=== PATIENT | female | born 1965 | race Caucasian/White ===

== ENCOUNTER 2016-09-27 14:10 | Emergency (ER) | payer OTHER ==
[2016-09-27 14:20] VITALS: BP 136/85
[2016-09-27] MEDS ORDERED: Ibuprofen TAB* 600 MG PO ONE (16:44)
--- NOTE | 2016-09-27 18:10 | UC ---
Manuel Hernandez Alfonso, scribed for Bird Rivas MD on 09/27/16 at 1601 . HPI Febrile Illness - HPI Summary HPI Summary: This patient is a 51 year old F presenting to [facility] with a chief complaint of febrile illness since 2 days ago. The CC is described as a burning ache. Pt rates the pain 4/10 in severity. Symptoms aggravated by cough and alleviated by nothing. Pt reports chills, nausea, aches (worse on left side), rhinorrhea, sore throat, left ear ache, tiredness, headache, lightheadedness, and dizziness. Pt denies dysuria, urinary symptoms, vaginal discharge, chest congestion, and abdominal pain. Pt reports I was bite by a really tiny tick in my left arm last week. PMHx of asthma and seasonal allergies. Patient medications reviewed this visit. - History of Current Complaint Chief Complaint: UCDizziness Time Seen by Provider: 09/27/16 15:46 Hx Obtained From: Patient Onset/Duration: Started Days Ago - 2, Still Present Timing: Constant Temperature: 101.4 F Initial Severity: Moderate Current Severity: Moderate Pain Intensity: 4 Pain Scale Used: 0-10 Numeric Aggravating Factors: Other: - Coughing Alleviating Factors: Nothing Associated Signs and Symptoms: Other: Related History: Recent Tick Bite - I was bite by a really tiny tick in my left arm last week. - Allergy/Home Medications Allergies/Adverse Reactions: Allergies Allergy/AdvReac Type Severity Reaction Status Date / Time No Known Allergies Allergy Verified 09/27/16 14:20 Home Medications: Home Medications Albuterol HFA INHALER* [Ventolin HFA Inhaler*] 1 puff INH Q4H PRN 09/27/16 [ History Confirmed 09/27/16] Atorvastatin* [Lipitor*] 10 mg PO 1700 09/27/16 [History Confirmed 09/27/16] Azelastine 0.05% (OPHTH)(NF) [Optivar 0.05% (NF)] 1 drop BOTH EYES 09/27/16 [ History] Desloratadine [Clarinex] 0.5 mg PO 09/27/16 [History] Escitalopram Oxalate [Lexapro 10 mg] 5 mg PO DAILY 09/27/16 [History Confirmed 09/27/16] Ibuprofen [Advil] 400 mg PO 09/27/16 [History] Mometasone NASAL (NF) [Nasonex (NF)] 50 mcg NA 09/27/16 [History] PMH/Surg Hx/FS Hx/Imm Hx Respiratory History: Reports: Hx Asthma Opthamlomology History: Denies: Hx Legally Blind EENT History: Denies: Hx Deafness - Cancer History Hx Chemotherapy: No Hx Radiation Therapy: No - Surgical History Surgery Procedure, Year, and Place: d&c polups, wisdom teeth extraction Infectious Disease History: No Infectious Disease History: Denies: Traveled Outside the [place] in Last 30 Days - Family History Known Family History: Positive: Renal Disease - Social History Alcohol Use: Rare Substance Use Type: Reports: None Smoking Status (MU): Never Smoked Tobacco Review of Systems Constitutional: Fever, Chills ENT: Sore Throat, Ear Ache - Left, Other - Positive rhinorrhea, Cardiovascular: Other - Negative chest congestion Gastrointestinal: Nausea, Other - Negative abd pain Genitourinary: Other - Negative dysuria, urinary symptoms, and vaginal discharge. Neurological: Other - Positive tieredness, headache, lightheadedness, and dizziness; All Other Systems Reviewed And Are Negative: Yes Physical Exam Triage Information Reviewed: Yes Appearance: Well-Appearing, No Pain Distress Vital Signs: Initial Vital Signs Temp 101.4 F 09/27/16 14:12 Pulse 99 09/27/16 14:12 Resp 18 09/27/16 14:12 BP 136/85 09/27/16 14:12 Pulse Ox 99 09/27/16 14:12 Vital Signs Reviewed: Yes Eyes: Positive: Other: - EOMI LIZZETTE ENT: Positive: Other: - Rhinorrhea clear. Posterior pharynx benign. Neck: Positive: Supple, Nontender Respiratory: Positive: Chest non-tender, Lungs clear, Normal breath sounds Cardiovascular: Positive: RRR Abdomen Description: Positive: Nontender, Soft Bowel Sounds: Positive: Present Musculoskeletal: Positive: Strength Intact Neurological: Positive: Alert Psychological: Positive: Age Appropriate Behavior Skin Exam: Normal Re-Evaluation - Re-Evaluation First Eval Re-Evaluation Time: 16:40 Comment: Reviewed labs and results with pt. She understands and agrees with discharge plan. Course/Dx - Course Course Of Treatment: NO OBVIOUS SOURCE FOR FEVER EXCEPT TICK BITE. WILL TREAT WITH DOXY. PATIENT WILL F/U WITH PMD; WILL RETURN IF WORSE OR NOT IMPROVING. - Diagnoses Clinic Provider Diagnoses: FEVER WITH HX OF TICK BITE Discharge - Discharge Plan Condition: Stable Disposition: HOME Prescriptions: DOXYcycline CAP(*) [DOXYcycline 100MG CAP(*)] 100 mg PO BID #42 cap Patient Education Materials: Tick Bite (ED), Fever in Adults (ED) Referrals: Jose Armando Anand MD [Primary Care Provider] - Additional Instructions: FOLLOW UP WITH YOUR DOCTOR. GO TO THE EMERGENCY DEPARTMENT FOR ANY WORSENING OF YOUR CONDITION OR QUESTIONS OR CONCERNS. The documentation as recorded by the Manuel galvez Alfonso accurately reflects the service I personally performed and the decisions made by me, Bird Rivas MD.
== END 2016-09-27 16:54 | disposition home or self-care (01) ==
LOC: UCEAST 14:10
DX: R50.9 Fever, unspecified (principal); S40.862A Insect bite (nonvenomous) of left upper arm, initial encounter
CPT/HCPCS: 81003; 84702; 93005; 99202; A9270-GY; G0463

== ENCOUNTER 2019-04-27 17:17 | Emergency (ER) | payer OTHER ==
--- OUTSIDE RECORDS SUMMARY | 2019-04-27 17:24 | XMS REPORT | Continuity of Care Document ---
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 Onset: 01/21/2015 Body mass index 30+ - obesity Luis Alberto Truong M.D. Onset: 01/21/2015 Uncomplicated moderate persistent asthma Luis Alberto Truong M.D. Onset: 01/21/2015 Allergic rhinitis due to pollen RENATO Oh Onset: 04/17/2015 Allergic rhinitis due to animals RENATO Oh Onset: 04/17/2015 Allergic rhinitis RENATO Oh Onset: 04/17/2015 Allergic rhinitis RENATO Oh Onset: 04/17/2015 Body mass index 30+ - obesity Shanell Pruett M.D. Onset: 05/08/2016 Uncomplicated moderate persistent asthma RENATO Mustafa Onset: 2016 Social History Type Date Description Comments Sex Unknown ETOH Use Rarely consumes alcohol Tobacco Use Start: Unknown Patient has never smoked Recreational Drug Use Never Used Drugs Allergies, Adverse Reactions, Alerts Description No Known Drug Allergies Medications Active Medications SIG Qnty Indications Ordering Date Provider Desloratadine take 1 tablet by 60tabs Umu 5mg Tablets mouth twice daily Art Wray Mometasone Furoate Use 2 Sprays In 51gm Umu 50mcg/Act Each Nostril Once Uldrich, 9 Suspension Daily [employer] Proair Respiclick 2 puffs every 4 1units Umu 108(90Base) hours as needed Uldrich, 8 mcg/Act Aerosol for cough, wheeze [employer] or shortness of breath Ventolin HFA 2 every 4 hours 18gm Umu 108(90Base) as needed Uldrich, 8 mcg/Act Aerosol [employer] Optichamber Advantage use with all 2units Umu Misc inhalers Uldrich, 7 [employer] Azelastine HCL 1 drop to each 18ml Umu (Ophthalmic) eye daily. Uldrich, 6 0.05% Solution [employer] Symbicort inhale 1 puff by 10.200gm J30.1 Umu 160-4.5mcg/Act mouth every Uldrich, 4 Aerosol morning and night [employer] Lipitor 1 tablet once a Unknown 10mg Tablets day 0 Lexapro 1 tablet once a Unknown 10mg Tablets day 0 Medroxyprogesterone first ten days of Lin Barton Acetate month Fariha 0 10mg Tablets Proair HFA two inhalations 17gm Umu 108(90Base) mcg/Act every 4 hours as Uldrich, 0 Aerosol needed for cough, [employer] wheezing or chest tightness Nasonex Use Two Sprays In 17units Umu 50mcg/Act Suspension Each Nostril Once Uldrich, 0 Daily [employer] Medications Administered in Office Medication SIG Qnty Indications Ordering Provider Date Injection Allergy Injection 03/10/2019 Injection Injection Allergy Injection 02/24/2019 Injection Injection Allergy Injection 01/25/2019 Injection Injection Allergy Injection 01/09/2019 Injection Injection Allergy Injection 12/26/2018 Injection Injection Allergy Injection 12/12/2018 Injection Injection Allergy Injection 11/23/2018 Injection Injection Allergy Injection 11/09/2018 Injection Injection Allergy Injection 10/14/2018 Injection Injection Allergy Injection 09/30/2018 Injection Injection Allergy Injection 09/14/2018 Injection Injection Allergy Injection 08/29/2018 Injection Injection Allergy Injection 08/12/2018 Injection Injection Allergy Injection 07/22/2018 Injection Injection Allergy Injection 07/08/2018 Injection Injection Allergy Injection 06/24/2018 Injection Injection Allergy Injection 06/10/2018 Injection Injection Allergy Injection 2018 Injection Injection Allergy Injection 05/13/2018 Injection Injection Allergy Injection 04/29/2018 Injection Injection Allergy Injection 04/15/2018 Injection Injection Allergy Injection 04/01/2018 Injection Injection Allergy Injection 03/02/2018 Injection Injection Allergy Injection 02/02/2018 Injection Injection Allergy Injection 01/19/2018 Injection Injection Allergy Injection 01/05/2018 Injection Injection Allergy Injection 12/15/2017 Injection Injection Shanell Pruett M.D. 11/24/2017 Injection Injection Allergy Injection 11/24/2017 Injection Injection Allergy Injection 11/10/2017 Injection Injection Allergy Injection 10/25/2017 Injection Injection Allergy Injection 10/11/2017 Injection Injection Allergy Injection 09/24/2017 Injection Injection Allergy Injection 09/10/2017 Injection Injection Allergy Injection 09/03/2017 Injection Injection Allergy Injection 08/20/2017 Injection Injection Allergy Injection 08/05/2017 Injection Injection Allergy Injection 07/22/2017 Injection Injection Allergy Injection 07/08/2017 Injection Injection Allergy Injection 06/24/2017 Injection Injection Allergy Injection 05/27/2017 Injection Injection Allergy Injection 04/30/2017 Injection Injection Allergy Injection 04/01/2017 Injection Injection Allergy Injection 03/03/2017 Injection Injection Allergy Injection 02/03/2017 Injection Injection Allergy Injection 01/21/2017 Injection Injection Allergy Injection 01/08/2017 Injection Injection Allergy Injection 12/25/2016 Injection Injection Allergy Injection 12/11/2016 Injection Injection Shanell Pruett M.D. 11/27/2016 Injection Injection Allergy Injection 11/27/2016 Injection Injection Shanell Pruett M.D. 11/06/2016 Injection Injection Allergy Injection 11/06/2016 Injection Injection Allergy Injection 10/22/2016 Injection Injection Allergy Injection 10/08/2016 Injection Injection Shanell Pruett M.D. 09/17/2016 Injection Injection Allergy Injection 09/17/2016 Injection Injection Shanell Pruett M.D. 09/03/2016 Injection Injection Allergy Injection 09/03/2016 Injection Injection Allergy Injection 08/20/2016 Injection Injection Allergy Injection 08/06/2016 Injection Injection Allergy Injection 07/22/2016 Injection Injection Allergy Injection 07/06/2016 Injection Injection Allergy Injection 06/17/2016 Injection Injection Allergy Injection 06/03/2016 Injection Injection Allergy Injection 05/21/2016 Injection Injection Shanell Pruett M.D. 04/22/2016 Injection Injection Allergy Injection 04/22/2016 Injection Injection Allergy Injection 04/08/2016 Injection Injection Allergy Injection 03/25/2016 Injection Injection Allergy Injection 03/04/2016 Injection Injection Allergy Injection 02/19/2016 Injection Injection Allergy Injection 02/05/2016 Injection Injection Allergy Injection 01/16/2016 Injection Injection Allergy Injection 12/26/2015 Injection Injection Allergy Injection 12/11/2015 Injection Injection Allergy Injection 11/27/2015 Injection Injection Allergy Injection 11/13/2015 Injection Injection Allergy Injection 10/30/2015 Injection Injection Allergy Injection 10/16/2015 Injection Injection Allergy Injection 10/02/2015 Injection Injection Allergy Injection 09/18/2015 Injection Injection Allergy Injection 09/04/2015 Injection Injection Allergy Injection 08/21/2015 Injection Injection Allergy Injection 08/07/2015 Injection Injection Allergy Injection 07/24/2015 Injection Injection Allergy Injection 07/10/2015 Injection Injection Allergy Injection 06/27/2015 Injection Injection Allergy Injection 06/12/2015 Injection Injection Allergy Injection 05/29/2015 Injection Injection Allergy Injection 05/15/2015 Injection Injection Allergy Injection 05/01/2015 Injection Injection Allergy Injection 04/17/2015 Injection Injection Allergy Injection 03/20/2015 Injection Injection Allergy Injection 02/18/2015 Injection Injection Allergy Injection 01/21/2015 Injection Injection Allergy Injection 01/04/2015 Injection Injection Allergy Injection 12/21/2014 Injection Injection Allergy Injection 12/07/2014 Injection Injection Allergy Injection 11/15/2014 Injection Injection Allergy Injection 11/05/2014 Injection Injection Allergy Injection 10/22/2014 Injection Injection Allergy Injection 10/10/2014 Injection Injection Allergy Injection 09/26/2014 Injection Injection Allergy Injection 09/12/2014 Injection Injection Allergy Injection 08/29/2014 Injection Injection Allergy Injection 08/15/2014 Injection Injection Allergy Injection 08/01/2014 Injection Injection Allergy Injection 07/18/2014 Injection Injection Allergy Injection 07/04/2014 Injection Injection Allergy Injection 06/20/2014 Injection Injection Allergy Injection 05/23/2014 Injection Injection Allergy Injection 04/23/2014 Injection Injection Allergy Injection 03/26/2014 Injection Injection Allergy Injection 02/26/2014 Injection Injection Allergy Injection 01/31/2014 Injection Injection Allergy Injection 01/03/2014 Injection Injection Allergy Injection 12/20/2013 Injection Injection Allergy Injection 12/06/2013 Injection Injection Allergy Injection 11/22/2013 Injection Injection Allergy Injection 11/08/2013 Injection Injection Allergy Injection 10/25/2013 Injection Injection Allergy Injection 10/11/2013 Injection Injection Allergy Injection 09/27/2013 Injection Injection Allergy Injection 09/13/2013 Injection Injection Allergy Injection 08/30/2013 Injection Injection Allergy Injection 08/16/2013 Injection Injection Allergy Injection 08/02/2013 Injection Injection Allergy Injection 07/24/2013 Injection Injection Allergy Injection 07/10/2013 Injection Injection Allergy Injection 06/28/2013 Injection Injection Allergy Injection 06/14/2013 Injection Injection Allergy Injection 05/31/2013 Injection Injection Allergy Injection 05/17/2013 Injection Injection Allergy Injection 05/03/2013 Injection Injection Allergy Injection 04/19/2013 Injection Injection Allergy Injection 04/05/2013 Injection Injection Allergy Injection 03/22/2013 Injection Injection Allergy Injection 03/13/2013 Injection Injection Allergy Injection 03/06/2013 Injection Injection Allergy Injection 02/22/2013 Injection Injection Allergy Injection 02/08/2013 Injection Injection Allergy Injection 01/25/2013 Injection Injection Allergy Injection 01/11/2013 Injection Injection Allergy Injection 12/28/2012 Injection Injection Allergy Injection 12/14/2012 Injection Injection Allergy Injection 11/30/2012 Injection Injection Allergy Injection 11/16/2012 Injection Injection Allergy Injection 11/02/2012 Injection Injection Allergy Injection 10/19/2012 Injection Injection Allergy Injection 10/05/2012 Injection Injection Allergy Injection 09/21/2012 Injection Injection Allergy Injection 09/07/2012 Injection Injection Allergy Injection 08/24/2012 Injection Injection Allergy Injection 08/10/2012 Injection Injection Allergy Injection 07/25/2012 Injection Injection Allergy Injection 07/11/2012 Injection Injection Allergy Injection 06/27/2012 Injection Injection Allergy Injection 06/08/2012 Injection Injection Amaya Weiner M.D. 05/11/2012 Injection Injection Amaya Weiner M.D. 04/13/2012 Injection Injection Amaya Weiner M.D. 03/18/2012 Injection Injection Amaya Weiner M.D. 03/02/2012 Injection Injection Amaya Weiner M.D. 02/17/2012 Injection Injection Amaya Weiner M.D. 02/01/2012 Injection Injection Amaya Weiner M.D. 01/11/2012 Injection Injection Amaya M Husam, Ulices.DRene 12/30/2011 Injection Injection Amaya M Husam, Ulices.DRene 12/16/2011 Injection Injection Amaya M Husam, Ulices.DRene 12/02/2011 Injection Injection Amaya Elena Husam, M.DRene 11/20/2011 Injection Injection Amaya M Husam, M.DRene 11/04/2011 Injection Injection Amaya M Husam, TamarDRene 10/21/2011 Injection Injection Amaya M Husam, M.DRene 10/07/2011 Injection Injection Amaya Elena Husam, M.DRene 09/21/2011 Injection Injection Amaya M Husam, Ulices.DRene 09/09/2011 Injection Injection Maaya M Husam, TamarDRene 08/26/2011 Injection Injection Luiz Gastelum, TamarDRene 08/12/2011 Injection Injection Amaya M Husam, TamarDRene 07/29/2011 Injection Injection Amaya Ulices Husam, TamarDRene 07/15/2011 Injection Injection Amaya M Husam, Ulices.DRene 07/01/2011 Injection Injection Amaya Elena Husam, Ulices.DRene 06/17/2011 Injection Injection Amaya Elena Husam, Ulices.DRene 06/03/2011 Injection Injection Amaya M Husam, Ulices.DRene 05/06/2011 Injection Injection Amaya Elena Husam, M.DRene 04/08/2011 Injection Injection Amaya Elena Husam, Ulices.DRene 03/11/2011 Injection Injection Amaya Ulices Husam, Ulices.DRene 02/11/2011 Injection Injection Amaya Ulices Husam, Ulices.DRene 01/28/2011 Injection Injection Amaya M Husam, M.DRene 01/14/2011 Injection Injection Amaya M Husam, M.DRene 12/31/2010 Injection Injection Amaya Ulices Husam, M.DRene 12/19/2010 Injection Injection Amaya M Husam, M.DRene 12/03/2010 Injection Injection Amaya M Husam, M.DRene 11/19/2010 Injection Injection Amaya M Husam, M.DRene 11/05/2010 Injection Injection Amaya Weiner, Ulices.DRene 10/22/2010 Injection Injection Amaya Ulices Husam, M.DRene 10/08/2010 Injection Injection Amaya Weiner M.D. 09/22/2010 Injection Injection Amaya Weiner M.D. 09/10/2010 Injection Injection Amaya Weiner M.D. 08/27/2010 Injection Injection Amaya Weiner M.D. 08/13/2010 Injection Injection Amaya Weiner M.D. 07/28/2010 Injection Injection Amaya Weiner M.D. 07/14/2010 Injection Injection Amaya Weiner M.D. 07/02/2010 Injection Injection Tamar LazcanoDRene 06/16/2010 Injection Injection Tamar LazcanoDRene 06/04/2010 Injection Injection Amaya Weiner M.D. 05/21/2010 Injection Injection Amaya Weiner M.D. 05/07/2010 Injection Injection Amaya Weiner M.D. 04/23/2010 Injection Injection Amaya Weiner M.D. 04/07/2010 Injection Injection Amaya Weiner M.D. 03/26/2010 Injection Injection Amaya Weiner M.D. 03/12/2010 Injection Injection Lisa Dewitt MD 03/03/2010 Injection Injection Amaya Weiner M.D. 02/19/2010 Injection Injection Amaya Weiner M.D. 02/10/2010 Injection Injection Amaya Weiner M.D. 02/05/2010 Injection Injection Amaya Weiner M.D. 01/29/2010 Injection Injection Amaya Weiner M.D. 01/22/2010 Injection Injection Amaya Weiner M.D. 01/15/2010 Injection Injection Amaya Weiner M.D. 01/08/2010 Injection Injection Amaya Weiner M.D. 01/01/2010 Injection Injection Amaya Weiner M.D. 12/25/2009 Injection Injection Amaya Weiner M.D. 12/18/2009 Injection Injection Amaya Weiner M.D. 12/11/2009 Injection Injection Amaya Weiner M.D. 12/04/2009 Injection Injection Amaya Weiner M.D. 11/27/2009 Injection Injection Amaya Weiner M.D. 11/20/2009 Injection Injection Amaya Weiner M.D. 11/13/2009 Injection Injection Amaya Weiner M.D. 11/06/2009 Injection Injection Amaya Weiner M.D. 10/30/2009 Injection Injection Amaya Weiner M.D. 10/23/2009 Injection Injection Amaya Weiner M.D. 10/16/2009 Injection Injection Amaya Weiner M.D. 10/07/2009 Injection Injection Amaya Weiner M.D. 10/02/2009 Injection Injection Amaya Weiner M.D. 09/23/2009 Injection Injection Amaya Weiner M.D. 09/18/2009 Injection Injection Amaya Weiner M.D. 09/11/2009 Injection Injection Amaya Weiner M.D. 09/06/2009 Injection Injection Amaya Weiner M.D. 08/28/2009 Injection Injection Amaya Weiner M.D. 08/21/2009 Injection Injection Amaya Weiner M.D. 08/14/2009 Injection Immunizations CPT Code Status Date Vaccine Lot # 70326 Given Unknown Influenza Vaccine 82223 Given Unknown Influenza Vaccine 28055 Given Unknown Influenza Vaccine 63039 Given Unknown Influenza Vaccine Vital Signs Date Vital Result Comment 03/10/2019 1:37pm Height 65.5 inches 5'5.50" Weight 198.00 lb Weight 89.813 kg Respiratory Rate 16 /min Heart Rate 88 /min O2 % BldC Oximetry 97 % BP Systolic 115 mmHg BP Diastolic 81 mmHg Asthma Control Test 24 BMI (Body Mass Index) 32.4 kg/m2 08/29/2018 11:38am Height 65.5 inches 5'5.50" Weight 195.00 lb Weight 88.452 kg Respiratory Rate 18 /min Heart Rate 90 /min O2 % BldC Oximetry 96 % BP Systolic 122 mmHg BP Diastolic 82 mmHg Asthma Control Test 24 Fractional Exhaled Nitric Oxide 23 BMI (Body Mass Index) 32.0 kg/m2 Results Description No Information Available Procedures Date Code Description Status 03/10/2019 71205 Injection Completed 02/24/2019 23155 Injection Completed 01/25/2019 89564 Extract 1-10 Completed 01/25/2019 38747 Injection Completed 01/09/2019 39451 Injection Completed 12/26/2018 70768 Injection Completed 12/12/2018 44489 Injection Completed 11/23/2018 48144 Injection Completed 11/09/2018 79411 Injection Completed 10/14/2018 89198 Injection Completed 09/30/2018 02070 Injection Completed 09/14/2018 71605 Injection Completed Medical Devices Description No Information Available Encounters Type Date Location Provider Dx Diagnosis Office Visit 03/10/2019 Brandon Wray, J30.1 Allergic rhinitis due 1:40p [employer] to pollen J30.2 Other seasonal allergic rhinitis J30.81 Allergic rhinitis due to animal (cat) (dog) hair and dander J30.89 Other allergic rhinitis J45.40 Moderate persistent asthma, uncomplicated Assessments Date Code Description Provider 03/10/2019 J30.1 Allergic rhinitis due to pollen Shanell Pruett M.D. 03/10/2019 J30.1 Allergic rhinitis due to pollen Umutrevin Wray, [employer] 03/10/2019 J30.1 Allergic rhinitis due to pollen Allergy Injection 03/10/2019 J30.2 Other seasonal allergic rhinitis Shanell Pruett M.D. 03/10/2019 J30.2 Other seasonal allergic rhinitis Umu Kamala, [employer] 03/10/2019 J30.2 Other seasonal allergic rhinitis Allergy Injection 03/10/2019 J30.81 Allergic rhinitis due to animal (cat) (dog) Shanell Pruett M.D. hair and dander 03/10/2019 J30.81 Allergic rhinitis due to animal (cat) (dog) Umu Yudydrich, [employer] hair and dander 03/10/2019 J30.81 Allergic rhinitis due to animal (cat) (dog) Allergy Injection hair and dander 03/10/2019 J30.89 Other allergic rhinitis Shanell Pruett M.D. 03/10/2019 J30.89 Other allergic rhinitis Umu Uldrich, [employer] 03/10/2019 J30.89 Other allergic rhinitis Allergy Injection 03/10/2019 J45.40 Moderate persistent asthma, uncomplicated Umu Uldrich , [employer] 02/24/2019 J30.1 Allergic rhinitis due to pollen Shanell Pruett M.D. 02/24/2019 J30.1 Allergic rhinitis due to pollen Allergy Injection 02/24/2019 J30.2 Other seasonal allergic rhinitis Shanell Pruett M.D. 02/24/2019 J30.2 Other seasonal allergic rhinitis Allergy Injection 02/24/2019 J30.81 Allergic rhinitis due to animal (cat) (dog) Shanell Pruett M.D. hair and dander 02/24/2019 J30.81 Allergic rhinitis due to animal (cat) (dog) Allergy Injection hair and dander 02/24/2019 J30.89 Other allergic rhinitis Shanell Pruett M.D. 02/24/2019 J30.89 Other allergic rhinitis Allergy Injection 01/25/2019 J30.1 Allergic rhinitis due to pollen Shanell Pruett M.D. 01/25/2019 J30.1 Allergic rhinitis due to pollen Allergy Injection 01/25/2019 J30.2 Other seasonal allergic rhinitis Shanell Pruett M.D. 01/25/2019 J30.2 Other seasonal allergic rhinitis Allergy Injection 01/25/2019 J30.81 Allergic rhinitis due to animal (cat) (dog) Shanell Pruett M.D. hair and dander 01/25/2019 J30.81 Allergic rhinitis due to animal (cat) (dog) Allergy Injection hair and dander 01/25/2019 J30.89 Other allergic rhinitis Shanell Pruett M.D. 01/25/2019 J30.89 Other allergic rhinitis Allergy Injection 01/09/2019 J30.1 Allergic rhinitis due to pollen Shanell Pruett M.D. 01/09/2019 J30.1 Allergic rhinitis due to pollen Allergy Injection 01/09/2019 J30.2 Other seasonal allergic rhinitis Shanell Pruett M.D. 01/09/2019 J30.2 Other seasonal allergic rhinitis Allergy Injection 01/09/2019 J30.81 Allergic rhinitis due to animal (cat) (dog) Shanell Pruett M.D. hair and dander 01/09/2019 J30.81 Allergic rhinitis due to animal (cat) (dog) Allergy Injection hair and dander 01/09/2019 J30.89 Other allergic rhinitis Shanell Pruett M.D. 01/09/2019 J30.89 Other allergic rhinitis Allergy Injection 12/26/2018 J30.1 Allergic rhinitis due to pollen Shanell Pruett M.D. 12/26/2018 J30.1 Allergic rhinitis due to pollen Allergy Injection 12/26/2018 J30.2 Other seasonal allergic rhinitis Shanell Pruett M.D. 12/26/2018 J30.2 Other seasonal allergic rhinitis Allergy Injection 12/26/2018 J30.81 Allergic rhinitis due to animal (cat) (dog) Shanell Pruett M.D. hair and dander 12/26/2018 J30.81 Allergic rhinitis due to animal (cat) (dog) Allergy Injection hair and dander 12/26/2018 J30.89 Other allergic rhinitis Shanell Pruett M.D. 12/26/2018 J30.89 Other allergic rhinitis Allergy Injection 12/12/2018 J30.1 Allergic rhinitis due to pollen Shanell Pruett M.D. 12/12/2018 J30.1 Allergic rhinitis due to pollen Allergy Injection 12/12/2018 J30.2 Other seasonal allergic rhinitis Shanell Pruett M.D. 12/12/2018 J30.2 Other seasonal allergic rhinitis Allergy Injection 12/12/2018 J30.81 Allergic rhinitis due to animal (cat) (dog) Shanell Pruett M.D. hair and dander 12/12/2018 J30.81 Allergic rhinitis due to animal (cat) (dog) Allergy Injection hair and dander 12/12/2018 J30.89 Other allergic rhinitis Shanell Pruett M.D. 12/12/2018 J30.89 Other allergic rhinitis Allergy Injection 11/23/2018 J30.1 Allergic rhinitis due to pollen Shanell Pruett M.D. 11/23/2018 J30.1 Allergic rhinitis due to pollen Allergy Injection 11/23/2018 J30.2 Other seasonal allergic rhinitis Shanell Pruett M.D. 11/23/2018 J30.2 Other seasonal allergic rhinitis Allergy Injection 11/23/2018 J30.81 Allergic rhinitis due to animal (cat) (dog) Shanell Pruett M.D. hair and dander 11/23/2018 J30.81 Allergic rhinitis due to animal (cat) (dog) Allergy Injection hair and dander 11/23/2018 J30.89 Other allergic rhinitis Shanell Pruett M.D. 11/23/2018 J30.89 Other allergic rhinitis Allergy Injection 11/09/2018 J30.1 Allergic rhinitis due to pollen Shanell Pruett M.D. 11/09/2018 J30.1 Allergic rhinitis due to pollen Allergy Injection 11/09/2018 J30.2 Other seasonal allergic rhinitis Shanell Pruett M.D. 11/09/2018 J30.2 Other seasonal allergic rhinitis Allergy Injection 11/09/2018 J30.81 Allergic rhinitis due to animal (cat) (dog) Shanell Pruett M.D. hair and dander 11/09/2018 J30.81 Allergic rhinitis due to animal (cat) (dog) Allergy Injection hair and dander 11/09/2018 J30.89 Other allergic rhinitis Shanell Pruett M.D. 11/09/2018 J30.89 Other allergic rhinitis Allergy Injection 10/14/2018 J30.1 Allergic rhinitis due to pollen Shanell Pruett M.D. 10/14/2018 J30.1 Allergic rhinitis due to pollen Allergy Injection 10/14/2018 J30.2 Other seasonal allergic rhinitis Shanell Pruett M.D. 10/14/2018 J30.2 Other seasonal allergic rhinitis Allergy Injection 10/14/2018 J30.81 Allergic rhinitis due to animal (cat) (dog) Shanell Pruett M.D. hair and dander 10/14/2018 J30.81 Allergic rhinitis due to animal (cat) (dog) Allergy Injection hair and dander 10/14/2018 J30.89 Other allergic rhinitis hSanell Pruett M.D. 10/14/2018 J30.89 Other allergic rhinitis Allergy Injection 09/30/2018 J30.1 Allergic rhinitis due to pollen Shanell Pruett M.D. 09/30/2018 J30.1 Allergic rhinitis due to pollen Allergy Injection 09/30/2018 J30.2 Other seasonal allergic rhinitis Shanell Pruett M.D. 09/30/2018 J30.2 Other seasonal allergic rhinitis Allergy Injection 09/30/2018 J30.81 Allergic rhinitis due to animal (cat) (dog) Shanell Pruett M.D. hair and dander 09/30/2018 J30.81 Allergic rhinitis due to animal (cat) (dog) Allergy Injection hair and dander 09/30/2018 J30.89 Other allergic rhinitis Shanell Pruett M.D. 09/30/2018 J30.89 Other allergic rhinitis Allergy Injection 09/14/2018 J30.1 Allergic rhinitis due to pollen Shanell Pruett M.D. 09/14/2018 J30.1 Allergic rhinitis due to pollen Allergy Injection 09/14/2018 J30.2 Other seasonal allergic rhinitis Shanell Pruett M.D. 09/14/2018 J30.2 Other seasonal allergic rhinitis Allergy Injection 09/14/2018 J30.81 Allergic rhinitis due to animal (cat) (dog) Shanell Pruett M.D. hair and dander 09/14/2018 J30.81 Allergic rhinitis due to animal (cat) (dog) Allergy Injection hair and dander 09/14/2018 J30.89 Other allergic rhinitis Shanell Pruett M.D. 09/14/2018 J30.89 Other allergic rhinitis Allergy Injection Plan of Treatment 03/10/2019 - EDUARD Mustafa-CJ30.1 Allergic rhinitis due to qihyddK86.2 Other seasonal allergic vywhxjtuP14.81 Allergic rhinitis due to animal (cat) ( dog) hair and ushhpbO78.89 Other allergic kzmciayyJ64.40 Moderate persistent asthma, uncomplicatedRecommendations:Continue all medications as prescribed.Refrain from wearing perfumes/scented colognes while visitingour office. Continue the Symbicort 2 puffs twice a day Continue the Clarinex 1 daily Continue the Nasonex 2 squirts daily Continue the Azelestine eye drops Continue the Proair 2 puffs every 4 hoursas needed for cough, exercise, shortness of breath, wheezing or chest tightness.Monitor Albuterol use. If using more than 2x/week, please call the office as your asthma medications may need to be adjusted. PFT done today. Pulmonary Function Studies are done by exhaling (blowing) into a machine to detect an asthmatic condition or other lung problem. Results reviewed with the patient and shows mild restriction. Continue the allergy shots next week Functional Status Description No Information Available Mental Status Description No Information Available Referrals Description No Information Available
[2019-04-27 17:44] VITALS: BP 123/79
--- NOTE | 2019-04-27 18:19 | UC ---
FLU HPI - HPI Summary HPI Summary: 53 yo female presents with flu-like symptoms. She tells me that for the last 3- 4 days she has been having body aches, fatigue, runny nose, and a dry cough. She has not been taking any OTC medications. She denies fever, sore throat, SOB , chest pain, rash, abdominal pain, n/v. She did get a flu shot this year. 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 Onset/Duration: Gradual Onset Severity Currently: Mild Severity Initially: Mild Pain Intensity: 3 Pain Scale Used: 0-10 Numeric - Allergy/Home Medications Allergies/Adverse Reactions: Allergies Allergy/AdvReac Type Severity Reaction Status Date / Time No Known Allergies Allergy Verified 04/27/19 17:44 Home Medications: Home Medications Budesonide/Formote 160/4.5(NF) [Symbicort 160/4.5 (NF)] 1 puff INH BID 04/27/19 [History Confirmed 04/27/19] PMH/Surg Hx/FS Hx/Imm Hx Respiratory History: Asthma - Surgical History Surgical History: Yes Surgery Procedure, Year, and Place: d&c polups, wisdom teeth extraction - Family History Known Family History: Positive: Renal Disease - Social History Occupation: Employed Full-time Lives: With Family Alcohol Use: Rare Substance Use Type: None Smoking Status (MU): Never Smoked Tobacco Review of Systems All Other Systems Reviewed And Are Negative: No Constitutional: Positive: Fatigue, Other - Body aches Skin: Positive: Negative Eyes: Positive: Negative ENT: Positive: Nasal Discharge Respiratory: Positive: Cough Cardiovascular: Positive: Negative Gastrointestinal: Positive: Negative Neurological/Mental Status: Positive: Negative Psychological: Positive: Negative Physical Exam - Summary Physical Exam Summary: GENERAL: NAD. WDWN. No pain distress. SKIN: No rashes, sores, lesions, or open wounds. HEENT: Head: AT/NC Eyes: EOM intact. Conjunctiva clear without inflammation or discharge. Ears: Hearing grossly normal. TMs intact, no bulging, erythema, or edema. Nose: Nasal mucosa pink and moist. NTTP maxillary and frontal sinus. Throat: Posterior oropharynx without exudates, erythema, or tonsillar enlargement. Uvula midline. NECK: Supple. Nontender. No lymphadenopathy. CHEST: CTAB. No r/r/w. No accessory muscle use. Breathing comfortably and in no distress. CV: RRR. Pulses intact. Cap refill <2seconds NEURO: Alert. PSYCH: Age appropriate behavior. Triage Information Reviewed: Yes Vital Signs: Initial Vital Signs Temp 98.0 F 04/27/19 17:40 Pulse 75 04/27/19 17:40 Resp 16 04/27/19 17:40 BP 123/79 04/27/19 17:40 Pulse Ox 96 04/27/19 17:40 Vital Signs Reviewed: Yes Diagnostics - Radiology CXR Radiology Interpretation Completed By: ED Physician Summary of Radiographic Findings: No PNA Flu Course/Dx - Course Course Of Treatment: CXR wet read negative. POC flu negative. Suspect viral illness - rx for tessalon - Differential Dx/Diagnosis Provider Diagnosis: Viral syndrome Discharge ED - Sign-Out/Discharge Documenting (check all that apply): Patient Departure All imaging exams completed and their final reports reviewed: No - Discharge Plan Condition: Stable Disposition: HOME Prescriptions: Benzonatate CAP* [Tessalon 100 MG CAP*] 100 mg PO TID PRN #21 cap PRN Reason: Cough Patient Education Materials: Viral Syndrome (ED) Referrals: Jose Armando Anand MD [Primary Care Provider] - Additional Instructions: Your symptoms are likely from a viral infection. Viral infections do not respond to antibiotics and are limited to the treatment of symptoms. Viral infections typically run their course in 7-10 days. Drink plenty of fluids, especially if you are running any fever. Use salt water gargles several times a day. Take over the counter acetaminophen (Tylenol) or ibuprofen (Advil, Motrin) according to directions as needed for pain or fever. You may also use Chloraseptic spray or Cepacol lonzenges according to directions which contain a numbing medication and can provide some temporary relief from a sore throat. Return here or follow up with your primary care provider in 7 days if symptoms persist. - Billing Disposition and Condition Condition: STABLE Disposition: Home - Attestation Statements Provider Attestation: This patient was not seen by me. I was available for consult. Chart reviewed. LETTY
[2019-04-27 21:01] LABS: Influenza A Molecular Negative (Negative); Influenza B Molecular Negative (Negative)
[2019-04-27 21:01] LABS: Influenza A Molecular Negative (Negative); Influenza B Molecular Negative (Negative)
--- NOTE | 2019-04-28 09:59 | UC ---
- Progress Note Progress Note: Patient Name: MOMO ECHAVARRIA Medical Record#: [id number] Ordering Physician: Barrera AGGARWAL Acct.#: [id number] : 1965 Age: 53 Sex: F Location: [facility] Exam Date: 04/27/19 183 ADM Status: DEP ER Order Information: CHEST PA & LAT 2 VWS Accession Number: [id number] CPT: 83883 INDICATION: Cough COMPARISON: April 06, 2007 chest radiograph TECHNIQUE: Dual-energy PA and lateral views of the chest were obtained. FINDINGS: The lungs are clear. There is no pleural effusion. The cardiomediastinal silhouette is within normal limits. The upper abdominal contents are normal. Osseous structures are unremarkable. IMPRESSION: NO EVIDENCE FOR ACTIVE CARDIOPULMONARY DISEASE. R0 Preliminary Imaging Read R0 <Electronically signed by Yair Story MD in OV> 04/28/19747 Dictated By: Yair Story MD Dictated Date/Time: 04/28/19746 Transcribed Date/Time: 04/28/19746 Copy to: CC:Shimon Leonardo MD; Jose Armando Anand MD; Barrera AGGARWAL Imaging - [facility] Imaging - [facility] [address] [address] ph ([phone]) ph ([phone]) ph ([phone]) This report is only to be considered final once signed by the Provider(s) as displayed in the "<Electronically Signed by >" field (s). Absence of a signature indicates the report is in a draft status and still needs to be finalized. In the event this document was created by someone other than the signing Provider, the individual initiating the document will be listed in the "Entered by:" or "Dictated by:" garcia. 1 of 1 Course/Dx - Diagnoses Provider Diagnoses: Viral syndrome Discharge ED - Sign-Out/Discharge Documenting (check all that apply): Post-Discharge Follow Up All imaging exams completed and their final reports reviewed: Yes - Discharge Plan Condition: Stable Disposition: HOME Prescriptions: Benzonatate CAP* [Tessalon 100 MG CAP*] 100 mg PO TID PRN #21 cap PRN Reason: Cough Patient Education Materials: Viral Syndrome (ED) Referrals: Jose Armando Anand MD [Primary Care Provider] - Additional Instructions: Your symptoms are likely from a viral infection. Viral infections do not respond to antibiotics and are limited to the treatment of symptoms. Viral infections typically run their course in 7-10 days. Drink plenty of fluids, especially if you are running any fever. Use salt water gargles several times a day. Take over the counter acetaminophen (Tylenol) or ibuprofen (Advil, Motrin) according to directions as needed for pain or fever. You may also use Chloraseptic spray or Cepacol lonzenges according to directions which contain a numbing medication and can provide some temporary relief from a sore throat. Return here or follow up with your primary care provider in 7 days if symptoms persist. - Billing Disposition and Condition Condition: STABLE Disposition: Home
== END 2019-04-27 19:11 | disposition home or self-care (01) ==
LOC: UCEAST 17:17
DX: B34.9 Viral infection, unspecified (principal); J45.909 Unspecified asthma, uncomplicated; R53.83 Other fatigue; R05 Cough; R09.89 Other specified symptoms and signs involving the circulatory and respiratory systems; Z79.51 Long term (current) use of inhaled steroids
CPT/HCPCS: 71046; 99212; G0463

== ENCOUNTER 2019-05-13 15:52 | Emergency (ER) | payer OTHER ==
--- OUTSIDE RECORDS SUMMARY | 2019-05-13 15:57 | XMS REPORT | Continuity of Care Document ---
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 Onset: 01/21/2015 Body mass index 30+ - obesity Luis Alberto Truong M.D. Onset: 01/21/2015 Uncomplicated moderate persistent asthma Luis Alberto Truong M.D. Onset: 01/21/2015 Allergic rhinitis due to pollen Karrie ElsiEDUARD parks-C Onset: 04/17/2015 Allergic rhinitis due to animals EDUARD Oh-C Onset: 04/17/2015 Allergic rhinitis Karrie ElsiJUNIOR parksP-C Onset: 04/17/2015 Allergic rhinitis JUNIOR OhP-C Onset: 04/17/2015 Body mass index 30+ - obesity Shanell Pruett M.D. Onset: 05/08/2016 Uncomplicated moderate persistent asthma JUNIOR MustafaP-C Onset: 2016 Social History Type Date Description Comments Sex Unknown ETOH Use Rarely consumes alcohol Tobacco Use Start: Unknown Patient has never smoked Recreational Drug Use Never Used Drugs Allergies, Adverse Reactions, Alerts Description No Known Drug Allergies Medications Active Medications SIG Qnty Indications Ordering Date Provider Prednisone 40mg for 3 31tabs J06.9 Umu 10mg Tablets days, 30mg for UlJUNIOR hsuP-C 0 3 days, 20 mg for 3 days, 10mg for 3 days and 5mg for 2 days Desloratadine take 1 tablet 60tabs Umu 5mg Tablets by mouth twice EDUARD Wray-C 9 daily Mometasone Furoate Use 2 Sprays In 51gm Umu 50mcg/Act Each Nostril EDUARD Wray-C 9 Suspension Once Daily Proair Respiclick 2 puffs every 4 1units Umu 108(90Base) hours as needed UldrJUNIOR alonzoP-C 8 mcg/Act Aerosol for cough, wheeze or shortness of breath Ventolin HFA 2 every 4 hours 18gm Umu 108(90Base) as needed Uldrcheri [employer] [employer] 8 mcg/Act Aerosol Optichamber Advantage use with all 2units Umu Misc inhalers JUNIOR WrayP-C 7 Azelastine HCL 1 drop to each 18ml Umu (Ophthalmic) eye daily. EDUARD Wray-C 6 0.05% Solution Symbicort Inhale 1 puff 10.2units J30.1 Umu 160-4.5mcg/Act By Mouth Every JUNIOR WrayP-C 4 Aerosol Morning And Night Lipitor 1 tablet once a Unknown 10mg Tablets day 0 Lexapro 1 tablet once a Unknown 10mg Tablets day 0 Medroxyprogesterone first ten days Lin Barton Acetate of month Fariha 0 10mg Tablets Nasonex Use Two Sprays 17units Umu 50mcg/Act Suspension In Each Nostril Kamala [employer]-[facility] 0 Once Daily Guaifenesin/Dextromethorp 1 tab every 12 Unknown sanders Hydrobromide hours 0 60-1200mg Tablets ER 12HR Medications Administered in Office Medication SIG Qnty Indications Ordering Provider Date Injection Allergy Injection 04/07/2019 Injection Injection Allergy Injection 03/10/2019 Injection Injection Allergy [...] Amaya Weiner M.D. 03/02/2012 Injection Injection Amaya M Husam, Ulices.DRene 02/17/2012 Injection Injection Amaya M Husam, Ulices.DRene 02/01/2012 Injection Injection Amaya Elena Husam, Ulices.DRene 01/11/2012 Injection Injection Amaya Elena Husam, Ulices.DRene 12/30/2011 Injection Injection Aamya M Husam, M.DRene 12/16/2011 Injection Injection Amaya M Husam, Ulices.DRene 12/02/2011 Injection Injection Amaya M Husam, M.DRene 11/20/2011 Injection Injection Amaya Elena Husam, M.DRene 11/04/2011 Injection Injection Amaya M Husam, TamarDRene 10/21/2011 Injection Injection Amaya Elena Husam, Ulices.DRene 10/07/2011 Injection Injection Amaya Elena Husam, TamarDRene 09/21/2011 Injection Injection Amaya M Husam, TamarDRene 09/09/2011 Injection Injection Amaya M Husam, TamarDRene 08/26/2011 Injection Injection Tamar WhiteDRene 08/12/2011 Injection Injection Amaya Elena Tamar WeinerDRene 07/29/2011 Injection Injection Amaya Elena Tamar WeinerDRene 07/15/2011 Injection Injection Amaya Elena Husam, TamarDRene 07/01/2011 Injection Injection Amaya Elena Husam, TamarDRene 06/17/2011 Injection Injection Amaya Elena Husam, Ulices.DRene 06/03/2011 Injection Injection Amaya M Husam, TamarDRene 05/06/2011 Injection Injection Amaya Elena Husam, TamarDRene 04/08/2011 Injection Injection Amaya Elena Husam, M.DRene 03/11/2011 Injection Injection Amaya Elena Husam, M.DRene 02/11/2011 Injection Injection Amaya Ulices Husam, Ulices.DRene 01/28/2011 Injection Injection Amaya M Husam, M.DRene 01/14/2011 Injection Injection Amaya M Husam, M.DRene 12/31/2010 Injection Injection Amaya M Husam, Ulices.DRene 12/19/2010 Injection Injection Amaya Ulices Husam, TamarDRene 12/03/2010 Injection Injection Amaya Tamar LmaaDRene 11/19/2010 Injection Injection Amaya Weiner M.D. 11/05/2010 Injection Injection Amaya Weiner M.D. 10/22/2010 Injection Injection Amaya Weiner M.D. 10/08/2010 Injection Injection Amaya Ulices Weiner, TamarDRene 09/22/2010 Injection Injection Tamar LazcanoDRene 09/10/2010 Injection Injection Amaya Weiner M.D. 08/27/2010 Injection Injection Amaya Weiner M.D. 08/13/2010 Injection Injection Tamar LazcanoDRene 07/28/2010 Injection Injection Amaya Weiner M.D. 07/14/2010 Injection Injection Amaya Weiner M.D. 07/02/2010 Injection Injection Amaya Weiner M.D. 06/16/2010 Injection Injection Amaya Weiner M.D. 06/04/2010 Injection Injection Amaya Weiner M.D. 05/21/2010 Injection Injection Amaya Weiner M.D. 05/07/2010 Injection Injection Amaya Weiner M.D. 04/23/2010 Injection Injection Amaya Ulices Joaquín Weiner 04/07/2010 Injection Injection Amaya Weiner M.D. 03/26/2010 [...] CPT Code Status Date Vaccine Lot # 82371 Given Unknown Influenza Vaccine 79999 Given Unknown Influenza Vaccine 15286 Given Unknown Influenza Vaccine 84892 Given Unknown Influenza Vaccine 38281 Given Unknown Influenza Vaccine Vital Signs Date Vital Result Comment 05/04/2019 1:21pm Height 65.5 inches 5'5.50" Weight 196.00 lb Weight 88.906 kg Respiratory Rate 20 /min Heart Rate 79 /min Body Temperature 98.3 F O2 % BldC Oximetry 96 % BP Systolic 134 mmHg BP Diastolic 90 mmHg Asthma Control Test 20 BMI (Body Mass Index) 32.1 kg/m2 03/10/2019 1:37pm Height 65.5 inches 5'5.50" Weight 198.00 lb Weight 89.813 kg Respiratory Rate 16 /min Heart Rate 88 /min O2 % BldC Oximetry 97 % BP Systolic 115 mmHg BP Diastolic 81 mmHg Asthma Control Test 24 BMI (Body Mass Index) 32.4 kg/m2 Results Description No Information Available Procedures Date Code Description Status 05/04/2019 96606 Ippb Completed 04/07/2019 62215 Injection Completed 03/10/2019 92784 Injection Completed 02/24/2019 18890 Injection Completed 01/25/2019 47594 Extract 1-10 Completed 01/25/2019 07775 Injection Completed 01/09/2019 58218 Injection Completed 12/26/2018 61663 Injection Completed 12/12/2018 37056 Injection Completed 11/23/2018 96789 Injection Completed 11/09/2018 35258 Injection Completed Medical Devices Description No Information Available Encounters Type Date Location Provider Dx Diagnosis Office Visit 05/04/2019 [place] [facility] Ularacelis, J06.9 Acute upper 1:20p [employer] respiratory infection, unspecified J30.1 Allergic rhinitis due to pollen J30.2 Other seasonal allergic rhinitis J30.81 Allergic rhinitis due to animal (cat) (dog) hair and dander J30.89 Other allergic rhinitis J45.40 Moderate persistent asthma, uncomplicated Office Visit 03/10/2019 1:40p [place] [facility] Uldrich, J30.1 Allergic rhinitis [employer] due to pollen J30.2 Other seasonal allergic rhinitis J30.81 Allergic rhinitis due to animal (cat) (dog) hair and dander J30.89 Other allergic rhinitis J45.40 Moderate persistent asthma, uncomplicated Assessments Date Code Description Provider 05/04/2019 J06.9 Acute upper respiratory infection, Umu Uldrich, [employer] unspecified 05/04/2019 J30.1 Allergic rhinitis due to pollen Umu Uldrich, [employer] 05/04/2019 J30.2 Other seasonal allergic rhinitis Umu Uldrich, [employer] 05/04/2019 J30.81 Allergic rhinitis due to animal (cat) (dog) Umu Uldrich, [employer] hair and dander 05/04/2019 J30.89 Other allergic rhinitis Umu Uldrich, [employer] 05/04/2019 J45.40 Moderate persistent asthma, uncomplicated Umu Uldrich , [employer] 04/07/2019 J30.1 Allergic rhinitis due to pollen Shanell Pruett M.D. 04/07/2019 J30.1 Allergic rhinitis due to pollen Allergy Injection 04/07/2019 J30.2 Other seasonal allergic rhinitis Shanell Pruett M.D. 04/07/2019 J30.2 Other seasonal allergic rhinitis Allergy Injection 04/07/2019 J30.81 Allergic rhinitis due to animal (cat) (dog) Shanell Pruett M.D. hair and dander 04/07/2019 J30.81 Allergic rhinitis due to animal (cat) (dog) Allergy Injection hair and dander 04/07/2019 J30.89 Other allergic rhinitis Shanell Pruett M.D. 04/07/2019 J30.89 Other allergic rhinitis Allergy Injection 03/10/2019 J30.1 Allergic rhinitis due to pollen Shanell Pruett M.D. 03/10/2019 J30.1 Allergic rhinitis due to pollen Shanell Pruett M.D. 03/10/2019 J30.2 Other seasonal allergic rhinitis Shanell Pruett M.D. 03/10/2019 J30.1 Allergic rhinitis due to pollen Umutrevin Wray, [employer] 03/10/2019 J30.81 Allergic rhinitis due to animal (cat) (dog) Shanell Pruett M.D. hair and dander 03/10/2019 J30.1 Allergic rhinitis due to pollen Allergy Injection 03/10/2019 J30.89 Other allergic rhinitis Shanell Pruett M.D. 03/10/2019 J30.2 Other seasonal allergic rhinitis Shanell Pruett M.D. 03/10/2019 J30.2 Other seasonal allergic rhinitis Umu Uldrich, [employer] 03/10/2019 J30.2 Other seasonal allergic rhinitis Allergy Injection 03/10/2019 J30.81 Allergic rhinitis due to animal (cat) (dog) Shanell Pruett M.D. hair and dander 03/10/2019 J30.81 Allergic rhinitis due to animal (cat) (dog) Umu Kamala, [employer] hair and dander 03/10/2019 J30.81 Allergic rhinitis due to animal (cat) (dog) Allergy Injection hair and dander 03/10/2019 J30.89 Other allergic rhinitis Shanell Pruett M.D. 03/10/2019 J30.89 Other allergic rhinitis Umu Wray, [facility] 03/10/2019 J30.89 Other allergic rhinitis Allergy Injection 03/10/2019 J45.40 Moderate persistent asthma, uncomplicated Umu Wray , [facility] [place] 02/24/2019 J30.1 Allergic rhinitis due to pollen [...] 11/09/2018 J30.89 Other allergic rhinitis Allergy Injection Plan of Treatment Future Appointment(s):05/25/2019 11:00 am - RENATO Mustafa at [id number] 3:00 pm - Allergy Injection at [id number]/04/2019 - EDUARD Mustafa- CJ06.9 Acute upper respiratory infection, ezwstqlxfdzB99.1 Allergic rhinitis due to nseilsP15.2 Other seasonal allergic bphbipeiA42.81 Allergic rhinitis due to animal (cat) (dog) hair and jnbbglM42.89 Other allergic jzmyxyrgH83.40 Moderate persistent asthma, uncomplicatedNew Medication:Prednisone 10 mgFollow up:3 weeks with SILVIA and prePFTRecommendations:Continue all medications as prescribed.Refrain from wearing perfumes/scented colognes while visitingour office. IPPB Start the Prednisone today Continue the Symbicort 2 puffs twice a day Continue theClarinex 1 daily Continue the Nasonex 2 squirts daily Continue the Azelestine eye drops Continue the Proair 2 puffs every 4 hours as needed for cough, exercise, shortness of breath, wheezing or chesttightness.Monitor Albuterol use. If using more than 2x/week, please call the office as your asthma medications may need to be adjusted. Continue the allergy shots next week Functional Status Description No Information Available Mental Status Description No Information Available Referrals Description No Information Available
--- OUTSIDE RECORDS SUMMARY | 2019-05-13 15:57 | XMS REPORT | Continuity of Care Document ---
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 Onset: 01/21/2015 Body mass index [...] hours 18gm Umu 108(90Base) as needed Uldrcheri [employer] 8 mcg/Act Aerosol Optichamber Advantage use with [...] Umu 50mcg/Act Suspension In Each Nostril Kamala [employer] 0 Once Daily Guaifenesin/Dextromethorp 1 tab every [...] Amaya Elena Husam, Ulices.DRene 12/30/2011 Injection Injection Amaya M Husam, M.DRene 12/16/2011 Injection Injection Amaya [...] Tamar WeinerDRene 07/15/2011 Injection Injection Amaya Elena Husma, TamarDRene 07/01/2011 Injection Injection Amaya Elena Husam, [...] Husam, TamarDRene 12/03/2010 Injection Injection Amaya Tamar LamaDRene 11/19/2010 Injection Injection Amaya Weiner M.D. 11/05/2010 [...] CPT Code Status Date Vaccine Lot # 16438 Given Unknown Influenza Vaccine 60171 Given Unknown Influenza Vaccine 30876 Given Unknown Influenza Vaccine 81412 Given Unknown Influenza Vaccine 24182 Given Unknown Influenza Vaccine Vital Signs Date [...] Available Procedures Date Code Description Status 05/04/2019 23447 Ippb Completed 04/07/2019 82713 Injection Completed 03/10/2019 96876 Injection Completed 02/24/2019 37372 Injection Completed 01/25/2019 54308 Extract 1-10 Completed 01/25/2019 44216 Injection Completed 01/09/2019 65000 Injection Completed 12/26/2018 15301 Injection Completed 12/12/2018 86233 Injection Completed 11/23/2018 96794 Injection Completed 11/09/2018 54171 Injection Completed Medical Devices Description No Information Available Encounters Type Date Location Provider Dx Diagnosis Office Visit 05/04/2019 Brandon Wray, J06.9 Acute upper 1:20p [employer] respiratory infection, unspecified J30.1 Allergic rhinitis due to pollen J30.2 Other seasonal allergic rhinitis J30.81 Allergic rhinitis due to animal (cat) (dog) hair and dander J30.89 Other allergic rhinitis J45.40 Moderate persistent asthma, uncomplicated Office Visit 03/10/2019 1:40p Brandon Wray J30.1 Allergic rhinitis [employer] due to pollen J30.2 Other seasonal allergic rhinitis J30.81 Allergic rhinitis due to animal (cat) (dog) hair and dander J30.89 Other allergic rhinitis J45.40 Moderate persistent asthma, uncomplicated Assessments Date Code Description Provider 05/04/2019 J06.9 Acute upper respiratory infection, Shanell Pruett M.D. unspecified 05/04/2019 J06.9 Acute upper respiratory infection, Umu Uldrich, [employer] unspecified 05/04/2019 J30.1 Allergic rhinitis due to pollen Shanell Pruett M.D. 05/04/2019 J30.1 Allergic rhinitis due to pollen Umu Uldrich, [employer] 05/04/2019 J30.2 Other seasonal allergic rhinitis Shanell Pruett M.D. 05/04/2019 J30.2 Other seasonal allergic rhinitis Umu Uldrich, [employer] 05/04/2019 J30.81 Allergic rhinitis due to animal (cat) (dog) Shanell Pruett M.D. hair and dander 05/04/2019 J30.81 Allergic rhinitis due to animal (cat) (dog) Umu Yudyaracelis, [employer] hair and dander 05/04/2019 J30.89 Other allergic rhinitis Shanell Pruett M.D. 05/04/2019 J30.89 Other allergic rhinitis Umu Ularacelis, [employer] 05/04/2019 J45.40 Moderate persistent asthma, uncomplicated Shanell Pruett M.D. 05/04/2019 J45.40 Moderate persistent asthma, uncomplicated Umu Ularacelis , [employer] 04/07/2019 J30.1 Allergic rhinitis due to pollen [...] 03/10/2019 J30.1 Allergic rhinitis due to pollen Umu Wray, [employer] 03/10/2019 J30.81 Allergic rhinitis due to animal (cat) (dog) Shanell Pruett M.D. hair and dander 03/10/2019 J30.1 Allergic rhinitis due to pollen Allergy Injection 03/10/2019 J30.89 Other allergic rhinitis Shanell Pruett M.D. 03/10/2019 J30.2 Other seasonal allergic rhinitis Shanell Pruett M.D. 03/10/2019 J30.2 Other seasonal allergic rhinitis Umu Wray [facility] 03/10/2019 J30.2 Other seasonal allergic rhinitis Allergy Injection 03/10/2019 J30.81 Allergic rhinitis due to animal (cat) (dog) Shanell Pruett M.D. hair and dander 03/10/2019 J30.81 Allergic rhinitis due to animal (cat) (dog) Umu Wray [facility] hair and dander 03/10/2019 J30.81 Allergic rhinitis due to animal (cat) (dog) Allergy Injection hair and dander 03/10/2019 J30.89 Other allergic rhinitis Shanell Pruett M.D. 03/10/2019 J30.89 Other allergic rhinitis Umu Wray [facility] 03/10/2019 J30.89 Other allergic rhinitis Allergy Injection 03/10/2019 J45.40 Moderate persistent asthma, uncomplicated Umu Wray [facility] 02/24/2019 J30.1 Allergic rhinitis due to pollen [...] of Treatment Future Appointment(s):05/25/2019 11:00 am - RNEATO Mustafa at [place] Functional Status Description No Information Available Mental Status Description No Information Available Referrals Description No Information Available
[2019-05-13 16:10] VITALS: BP 127/87
--- NOTE | 2019-05-13 16:36 | UC ---
Throat Pain/Nasal Len HPI - HPI Summary HPI Summary: 53-year-old woman comes in with a chief complaint of more than 2 weeks of upper respiratory tract infection symptoms. April 27, 2019 patient was seen here and diagnosed with viral illness. Chest x-ray at that time did not show any acute disease process. Patient treated with Tessalon Perles at that time. Patient had not completely improved with continuing rhinorrhea. 4 days ago her registered respiratory therapist prescribed prednisone taper. Rhinorrhea continues denies any shortness of breath or wheezing. reports that 3 days ago after starting the prednisone patient started to have some confusion and is becoming excessively focusing on tasks primarily cleaning the house. The wonders if the prednisone is causing the confusion. Here today in clinic patient does not have a fever and is not hypoxic. 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 Pain Intensity: 0 - Allergies/Home Medications Allergies/Adverse Reactions: Allergies Allergy/AdvReac Type Severity Reaction Status Date / Time No Known Allergies Allergy Verified 05/13/19 16:01 Home Medications: Home Medications Albuterol HFA INHALER* [Ventolin HFA Inhaler*] 1 puff INH Q4H PRN 09/27/16 [ History Confirmed 05/13/19] Atorvastatin* [Lipitor*] 10 mg PO 1700 09/27/16 [History Confirmed 05/13/19] Azelastine 0.05% (OPHTH)(NF) [Optivar 0.05% (NF)] 1 drop BOTH EYES DAILY PRN [History Confirmed 05/13/19] Desloratadine [Clarinex] 0.5 mg PO DAILY 09/27/16 [History Confirmed 05/13/19] Escitalopram Oxalate [Lexapro 10 mg] 5 mg PO DAILY 09/27/16 [History Confirmed 05/13/19] Ibuprofen [Advil] 400 mg PO Q6H 09/27/16 [History Confirmed 05/13/19] Mometasone NASAL (NF) [Nasonex (NF)] 50 mcg NA DAILY 09/27/16 [History Confirmed 05/13/19] Budesonide/Formote 160/4.5(NF) [Symbicort 160/4.5 (NF)] 1 puff INH BID 04/27/19 [History Confirmed 05/13/19] Amoxicillin/Clavulanate TAB* [Augmentin TAB 875*] 875 mg PO BID #20 tab [Rx] predniSONE 10 mg TAB [Deltasone 10 MG TAB*] 20 mg PO DAILY 05/13/19 [History Confirmed 05/13/19] PMH/Surg Hx/FS Hx/Imm Hx Previously Healthy: Yes Endocrine History: Dyslipidemia Respiratory History: Asthma - Surgical History Surgical History: Yes Surgery Procedure, Year, and Place: d&c polups, wisdom teeth extraction - Family History Known Family History: Positive: Renal Disease - Social History Alcohol Use: Rare Substance Use Type: None Smoking Status (MU): Never Smoked Tobacco Review of Systems All Other Systems Reviewed And Are Negative: Yes Constitutional: Positive: Other - SEE HPI Skin: Positive: Negative Eyes: Positive: Negative ENT: Positive: Nasal Discharge, Sinus Congestion Respiratory: Positive: Other - SEE HPI Cardiovascular: Positive: Negative Gastrointestinal: Positive: Negative Motor: Positive: Negative Neurovascular: Positive: Negative Musculoskeletal: Positive: Negative Neurological/Mental Status: Positive: Negative Psychological: Positive: Other - SEE HPI Physical Exam Triage Information Reviewed: Yes Appearance: Well-Appearing, No Pain Distress, Well-Nourished Vital Signs: Initial Vital Signs Temp 98.8 F 05/13/19 16:04 Pulse 83 05/13/19 16:04 Resp 16 05/13/19 16:04 BP 127/87 05/13/19 16:04 Pulse Ox 99 05/13/19 16:04 Vital Signs Reviewed: Yes Eye Exam: Normal Eyes: Positive: Conjunctiva Clear ENT: Positive: Pharynx normal, Nasal congestion, TMs normal Neck: Positive: Supple, Nontender Respiratory: Positive: Lungs clear, Normal breath sounds, No respiratory distress Cardiovascular: Positive: RRR Musculoskeletal: Positive: Strength Intact, ROM Intact Neurological: Positive: Alert, Muscle Tone Normal, Other: - No focal neurologic deficit Psychological: Positive: Age Appropriate Behavior, Other: - Patient's awake and alert. She answers questions. Skin Exam: Normal Throat Pain/Nasal Course/Dx - Course Course Of Treatment: We'll treat the sinusitis with Augmentin. Patient will continue symptomatic treatment for the sinusitis. For the confusion I recommended stopping the prednisone. Vital signs are stable here patient does not have a fever and is not hypoxic. I discussed with the patient and her that within 24 hours the confusion symptoms should completely resolve and if they had not I recommended further evaluation emergency Department. I also let them know that if at any time they felt the need further evaluation and care that she go directly to the emergency department. Also that if the patient worsens at any time that she should go to the emergency department. - Differential Dx/Diagnosis Provider Diagnosis: Sinusitis, Confusion Discharge ED - Sign-Out/Discharge Documenting (check all that apply): Patient Departure All imaging exams completed and their final reports reviewed: No Studies - Discharge Plan Condition: Stable Disposition: HOME Prescriptions: Amoxicillin/Clavulanate TAB* [Augmentin TAB 875*] 875 mg PO BID #20 tab Patient Education Materials: Sinusitis (ED), Acute Delirium (ED) Referrals: Jose Armando Anand MD [Primary Care Provider] - Additional Instructions: FOLLOW UP WITH YOUR DOCTOR. STOP TAKING THE PREDNISONE IT MAY BE CAUSING CONFUSION. IF YOUR CONFUSION DOES NOT COMPLETELY RESOLVE IN THE NEXT 24 HOURS OR, IF YOUR CONDITION WORSEN AT ANY TIME, GO DIRECTLY TO THE EMERGENCY DEPARTMENT. GO TO THE EMERGENCY DEPARTMENT IF NOT IMPROVED OR WORSE; CONTINUED CONFUSION, FEVER, YOU FEEL ILL, WEAKNESS, NUMBNESS, PAIN OR ANY QUESTIONS OR CONCERNS. - Billing Disposition and Condition Condition: STABLE Disposition: Home
== END 2019-05-13 16:45 | disposition home or self-care (01) ==
LOC: UCEAST 15:52
DX: J32.9 Chronic sinusitis, unspecified (principal); R41.0 Disorientation, unspecified; J45.909 Unspecified asthma, uncomplicated; E78.5 Hyperlipidemia, unspecified; Z79.899 Other long term (current) drug therapy
CPT/HCPCS: 99212; G0463

== ENCOUNTER 2019-05-13 17:05 | Emergency (ER) | payer OTHER ==
[2019-05-13] MEDS ORDERED: LORazepam TAB(*) 1 MG PO ONE (17:29)
--- NOTE | 2019-05-13 17:34 | ED ---
Psychiatric Complaint - HPI Summary HPI Summary: This patient is a 53 year old F presenting to [facility] accompanied by with a chief complaint of feeling overwhelmed since 05/10/19. On 05/10/19 pt was diagnosed with respiratory infection and was put on 10 mg prednisone. Her respiratory symptoms are better. However pt reports feeling general anxiety, and feeling overwhelmed. She feels like the house is a disaster, and feels generally tired. Pt cannot sleep. Pt has been on steroids and prednisone before but at a lower dose. Pt has PMHx of asthma, and anxiety (takes Lexapro). Pt has had no other changes in medication. Pt does not smoke, drink, or do drugs. Pt has no thoughts of hurting herself, and no auditory or visual hallucination. Pt denies pain, vomiting, diarrhea, weakness, and change in vision. Medications reviewed. Allergies noted. 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 Onset/Duration: Gradual Onset, Still Present Timing: Constant Character: Anxious Aggravating Factor(s): Other - Change in medication Alleviating Factor(s): Nothing Associated Signs And Symptoms: Positive: Negative Related History: Positive For: Prior Psychiatric Issues Has Suicidal: Denies: Thoughts - Allergies/Home Medications Allergies/Adverse Reactions: Allergies Allergy/AdvReac Type Severity Reaction Status Date / Time No Known Allergies Allergy Verified 05/13/19 17:18 Home Medications: Home Medications Albuterol HFA INHALER* [Ventolin HFA Inhaler*] 1 puff INH Q4H PRN 09/27/16 [ History Confirmed 05/13/19] Atorvastatin* [Lipitor*] 10 mg PO 1700 09/27/16 [History Confirmed 05/13/19] Azelastine 0.05% (OPHTH)(NF) [Optivar 0.05% (NF)] 1 drop BOTH EYES DAILY PRN [History Confirmed 05/13/19] Desloratadine [Clarinex] 0.5 mg PO DAILY 09/27/16 [History Confirmed 05/13/19] Escitalopram Oxalate [Lexapro 10 mg] 5 mg PO DAILY 09/27/16 [History Confirmed 05/13/19] Ibuprofen [Advil] 400 mg PO Q6H 09/27/16 [History Confirmed 05/13/19] Mometasone NASAL (NF) [Nasonex (NF)] 50 mcg NA DAILY 09/27/16 [History Confirmed 05/13/19] Budesonide/Formote 160/4.5(NF) [Symbicort 160/4.5 (NF)] 1 puff INH BID 04/27/19 [History Confirmed 05/13/19] Amoxicillin/Clavulanate TAB* [Augmentin TAB 875*] 875 mg PO BID #20 tab [Rx] LORazepam TAB(*) [Ativan 0.5 MG TAB (*)] 0.5 mg PO BEDTIME PRN #4 tab MDD 1 tab 05/13/19 [Rx] predniSONE 10 mg TAB [Deltasone 10 MG TAB*] 20 mg PO DAILY 05/13/19 [History Confirmed 05/13/19] PMH/Surg Hx/FS Hx/Imm Hx Respiratory History: Reports: Hx Asthma Sensory History: Denies: Hx Legally Blind, Hx Deafness Opthamlomology History: Denies: Hx Legally Blind Psychiatric History: Reports: Hx Anxiety - Cancer History Hx Chemotherapy: No Hx Radiation Therapy: No - Surgical History Surgery Procedure, Year, and Place: d&c polups, wisdom teeth extraction Infectious Disease History: No Infectious Disease History: Denies: Traveled Outside the [place] in Last 30 Days - Family History Known Family History: Positive: Renal Disease - Social History Lives: With Family Alcohol Use: None Substance Use Type: Reports: None Smoking Status (MU): Never Smoked Tobacco Review of Systems Negative: Blurred Vision Negative: Vomiting, Diarrhea Negative: Weakness Positive: Anxious, Other - Overwhelmed All Other Systems Reviewed And Are Negative: Yes Physical Exam - Summary Physical Exam Summary: Constitutional: Well-developed, Well-nourished, Alert. (-) Distressed Skin: Warm, Dry HENT: Normocephalic; Atraumatic Eyes: Conjunctiva normal Neck: Musculoskeletal ROM normal neck. (-) JVD, (-) Stridor, (-) Tracheal deviation Cardio: Rhythm regular, rate normal, Heart sounds normal; Intact distal pulses; Radial pulses are 2+ and symmetric. (-) Murmur Pulmonary/Chest wall: Effort normal. (-) Respiratory distress, (-) Wheezes, (-) Rales Abd: Soft, (-) tenderness, (-) Distension, (-) Guarding, (-) Rebound Musculoskeletal: (-) Edema Lymph: (-) Cervical adenopathy Neuro: Alert, Oriented x3 Psych: Appears anxious Triage Information Reviewed: Yes Vital Signs On Initial Exam: Initial Vitals Temp Pulse Resp BP Pulse Ox 98.8 F 82 19 134/90 97 05/13/19 17:14 05/13/19 17:14 05/13/19 17:14 05/13/19 17:14 05/13/19 17:14 Vital Signs Reviewed: Yes Procedures - Sedation Patient Received Moderate/Deep Sedation with Procedure: No Diagnostics - Vital Signs Vital Signs Temp Pulse Resp BP Pulse Ox 05/13/19 17:14 98.8 F 82 19 134/90 97 - Laboratory Lab Statement: Any lab studies that have been ordered have been reviewed, and results considered in the medical decision making process. Re-Evaluation - Re-Evaluation First Eval Re-Evaluation Time: 18:10 Comment: Discussed plan of care with pt Course/Dx - Course Course Of Treatment: Patient is here with worsening of her anxiety and OCD after starting prednisone. Patient has no red flag symptoms necessitating mental health evaluation. Patient has no other symptoms as her upper respiratory symptoms are getting better. Patient would not benefit from any imaging or blood tests. Patient was given a dose of Ativan which she's had a positive response to the past. Patient was discharged with 4 tablets of Ativan to help her to the next couple days until she can metabolize her prednisone. Patient was also told to go to her [facility] office to get resources for a psychologist and to ask her colleagues at [facility] for referral as well - Differential Dx/Clinical Impression Provider Diagnosis: Medication reaction, Anxiety Discharge ED - Sign-Out/Discharge Documenting (check all that apply): Patient Departure - Discharge - Discharge Plan Condition: Stable Disposition: HOME Prescriptions: LORazepam TAB(*) [Ativan 0.5 MG TAB (*)] 0.5 mg PO BEDTIME PRN #4 tab MDD 1 tab PRN Reason: Anxiety Patient Education Materials: Anxiety (ED) Referrals: Jose Armando Anand MD [Primary Care Provider] - [facility] (Therapy) [Outside] Additional Instructions: Continue Lexapro. Take prescribed medication if you feel anxious. Return to ED if you have suicidal thoughts. Follow up with [facility] or [facility]. Do not take Prednisone. - Billing Disposition and Condition Condition: STABLE Disposition: Home - Attestation Statements Document Initiated by Nato: Yes Documenting Scribe: Sammi Lamar Provider For Whom Nato is Documenting (Include Credential): Davian Newell MD Scribe Attestation: Sammi Hernandez, scribed for Davian Newell MD on 05/13/19 at 1827. Scribe Documentation Reviewed: Yes Provider Attestation: The documentation as recorded by the Sammi galvez accurately reflects the service I personally performed and the decisions made by , Davian Newell MD Status of Scribe Document: Viewed
[2019-05-13 18:31] VITALS: BP 142/102
== END 2019-05-13 18:31 | disposition home or self-care (01) ==
LOC: ED 17:05
DX: T38.0X5A Adverse effect of glucocorticoids and synthetic analogues, initial encounter (principal); F41.9 Anxiety disorder, unspecified; J45.909 Unspecified asthma, uncomplicated; Y92.9 Unspecified place or not applicable
CPT/HCPCS: 99282; A9270-GY